=== PATIENT | male | born 1965 | race Caucasian/White ===

== ENCOUNTER 2018-06-10 07:00 | Day surgery (SDC) | payer OTHER ==
[~2018-06-10] VITALS: Ht 175.3 cm; Wt 103.9 kg
[~2018-06-10 07:00] MED LIST: ATEN100 PO; Zocor20 MG PO
--- NOTE | 2018-06-10 07:11 | NUR ---
History, Chart, Medications and Allergies reviewed before start of procedure. Reports taking all of colon prep with clear results. Patient States Post-Procedure ride home has been arranged with his .
--- NOTE | 2018-06-10 08:03 | NUR ---
06/10/18 0803 Artemio Melgar PATIENT DETERMINED TO BE ASA APPROPRIATE FOR PROPOFOL SEDATION PRIOR TO START OF PROCEDURE BY . 3-LEAD EKG REVIEWED WITH PHYSICIAN PRIOR TO START OF PROCEDURE.PATIENT CONFIRMS NPO STATUS AND AGREES WITH SCHEDULED PROCEDURE.History, Chart, Medications and Allergies reviewed before start of procedure.MONITOR INTACT WITH CONTINUOUS PULSE OXIMETRY AND INTERMITTENT BP.O2 VIA N/C INTACT THROUGHOUT SEDATION/PROCEDURE.
--- NOTE | 2018-06-10 08:36 | NUR ---
PT TO RECOVERY, LETHARGIC. AT BEDSIDE. NO C/O PAIN OR DISCOMFORT.
--- NOTE | 2018-06-10 08:39 | NUR ---
POSITION CHANGE TO SEMI FOWLERS. PT MORE AWAKE. SIPPING ON APPLE JUICE, VISITING WITH . CONTINUES TO DENY PAIN OR DISCOMFORT.
--- NOTE | 2018-06-10 08:46 | NUR ---
PT TOLERATING PO FLUIDS WITHOUT DIFFICULTY AT THIS TIME. REVIEWED DISCHARGE INSTRUCTIONS WITH PATIENT AND , BOTH OF WHOM VERBALIZE UNDERSTANDING OF ALL INSTRUCTIONS GIVEN.
--- NOTE | 2018-06-10 08:55 | NUR ---
PT STOOD AT EDGE OF BED - STEADY ON FEET. NO C/O DIZZINESS. ASSISTING IN PATIENT DRESSING SELF AT THIS TIME.
--- NOTE | 2018-06-10 09:06 | NUR ---
PT DISCHARGED HOME VIA W/C AT 0904. IV D/C TIP INTACT PRIOR TO DISCHARGE.
== END 2018-06-10 22:47 | disposition home or self-care (01) ==
LOC: ORSCMMR 07:00 → ORD 08:00 → ORSCMMR 08:00
PROVIDERS: Internal Medicine Gastroenterology
PROC: 0DBP8ZX Excision of Rectum, Via Natural or Artificial Opening Endoscopic, Diagnostic (ICD-10-PCS; principal; 2018-06-10 08:00)
PROC: 0DBK8ZX Excision of Ascending Colon, Via Natural or Artificial Opening Endoscopic, Diagnostic (ICD-10-PCS; principal; 2018-06-10 08:00)
DX: Z12.11 Encounter for screening for malignant neoplasm of colon (principal); D12.2 Benign neoplasm of ascending colon; K62.1 Rectal polyp; Z86.010 Personal history of colon polyps; Z80.0 Family history of malignant neoplasm of digestive organs; I10 Essential (primary) hypertension; E78.00 Pure hypercholesterolemia, unspecified; Z79.899 Other long term (current) drug therapy
CPT/HCPCS: 88305; J2704; J7120

== ENCOUNTER 2024-02-13 08:20 | Day surgery (SDC) | payer OTHER ==
[~2024-02-13] VITALS: Ht 175.3 cm; Wt 96.9 kg
[~2024-02-13 08:20] MED LIST changes: +Lactated Ringer's 1,000 ML IV SCH
[2024-02-13] MEDS ORDERED: propofoL 40 ML IV ONE (08:55)
[2024-02-13 09:20] VITALS: BP 150/74
--- NOTE | 2024-02-13 09:26 | NUR ---
PT TO [facility] FOR COLONOSCOPY. CHART REVIEWED. PLAN OF CARE DISCUSSED WITH PT. QUESTIONS ANSWERED. PT HAS RIDE HOME.
--- NOTE | 2024-02-13 10:26 | NUR ---
02/13/24 1026 Dinesh Winn MONITOR INTACT WITH CONTINUOUS PULSE OXIMETRY, CONTINUOUS END TITAL CO2, AND INTERMITTENT BLOOD PRESSURE.AND EKG ANESTHESIA PER Elizabeth [employer]
[2024-02-13 10:52] VITALS: BP 124/81
[2024-02-13 11:07] VITALS: BP 126/83
--- NOTE | 2024-02-13 11:18 | NUR ---
Discharge instructions reviewed with patient. Patient verbalizes understanding. Copy given to patient to take home. Patient States Post-Procedure ride home has been arranged. Discharged via wheelchair to private car for ride home.
== END 2024-02-13 11:21 | disposition home or self-care (01) ==
LOC: ORSCMMR 08:20 → ORD 09:30 → ORSCMMR 09:30
PROVIDERS: Internal Medicine Gastroenterology
PROC: 0DBL8ZX Excision of Transverse Colon, Via Natural or Artificial Opening Endoscopic, Diagnostic (ICD-10-PCS; principal; 2024-02-13 09:30)
DX: Z12.11 Encounter for screening for malignant neoplasm of colon (principal); D12.3 Benign neoplasm of transverse colon; Z86.0101 Personal history of adenomatous and serrated colon polyps; Z80.0 Family history of malignant neoplasm of digestive organs; I10 Essential (primary) hypertension; G47.33 Obstructive sleep apnea (adult) (pediatric); E78.00 Pure hypercholesterolemia, unspecified; E66.9 Obesity, unspecified; Z68.31 Body mass index [BMI] 31.0-31.9, adult; Z79.899 Other long term (current) drug therapy
CPT/HCPCS: 88305; J2704; J7120